=== PATIENT | male | born 1985 | race Caucasian/White ===

== ENCOUNTER 2019-03-30 15:13 | Emergency (ER) | payer OTHER, SELFPAY ==
[~2019-03-30] VITALS: Ht 165.1 cm; Wt 66.8 kg
[2019-03-30] MEDS ORDERED: ADACEL/BOOSTRIX VACCINE (DIPHTH/PERTUSS/ACELL/TETANUS)0.5ML SYR (90715) IM ONE (15:45)
[2019-03-30] MEDS ORDERED: NS 1,000 ML IV ONE (15:45)
[2019-03-30 16:04] LABS: BASO # 0.2 10^3/uL (0.0-0.2); BASO % 0.7 % (0.0-1.0); EOS # 0.2 10^3/uL (0.0-0.50); EOS % 0.7 % (0.0-3.0); HEMATOCRIT 46.2 % (42.0-52.0); HEMOGLOBIN 16.3 g/dl (13.5-17.5); LYMPH # 1.9 10^3/uL (1.5-4.5); LYMPH % 8.9 % (24.0-44.0); MEAN CORPUSCULAR HEMOGLOBIN 30.9 pg (27.0-33.0); MEAN CORPUSCULAR HGB CONC 35.3 g/dl (32.0-36.5); MEAN CORPUSCULAR VOLUME 87.7 fl (80.0-96.0); MONO # 1.5 10^3/uL (0.0-0.8); NEUTROPHILS % 81.9 % (36.0-66.0); PLATELET COUNT, AUTOMATED 176 10^3/uL (150-450); RED BLOOD COUNT 5.27 10^6/uL (4.30-6.10); WHITE BLOOD COUNT 20.8 10^3/uL (4.0-10.0)
[2019-03-30 16:15] LABS: INR 1.03; PROTHROMBIN TIME 13.2 SECONDS (11.8-14.0)
[2019-03-30 16:16] LABS: PARTIAL THROMBOPLASTIN TIME 24.4 SECONDS (25.0-38.4)
[2019-03-30 16:24] LABS: ALBUMIN 4.2 GM/DL (3.2-5.2); ALT/SGPT 33 U/L (12-78); BILIRUBIN,DIRECT 0.2 MG/DL (0.0-0.2); BILIRUBIN,TOTAL 0.6 MG/DL (0.2-1.0); BLOOD UREA NITROGEN 13 MG/DL (7-18); CALCIUM LEVEL 9.4 MG/DL (8.5-10.1); CARBON DIOXIDE LEVEL 26 MEQ/L (21-32); CHLORIDE LEVEL 110 MEQ/L (98-107); CREATININE FOR GFR 1.09 MG/DL (0.70-1.30); GLOMERULAR FILTRATION RATE > 60.0 (>60); GLUCOSE, FASTING 105 MG/DL (70-100); SODIUM LEVEL 141 MEQ/L (136-145); TOTAL PROTEIN 7.4 GM/DL (6.4-8.2)
[2019-03-30] MEDS ORDERED: ISOVUE-370 76% 100ML VIAL (Q9967) As Ordered ONE (16:25)
[2019-03-30 16:57] LABS: AMORPHOUS SEDIMENT SMALL (NEGATIVE); APPEARANCE, URINE CLOUDY (CLEAR); BACTERIA, URINE AUTO NEGATIVE (NEGATIVE); BILIRUBIN, URINE AUTO NEGATIVE (NEGATIVE); BLOOD, URINE BLOOD 3+ (NEGATIVE); COLOR, URINE AMBER (YELLOW); GLUCOSE, URINE (UA) AUTO NEGATIVE (NEGATIVE); KETONE, URINE AUTO NEGATIVE (NEGATIVE); LEUKOCYTE ESTERASE, URINE AUTO NEGATIVE (NEGATIVE); MUCUS, URINE SMALL (NEGATIVE); NITRITE, URINE AUTO NEGATIVE (NEGATIVE); PROTEIN, URINE AUTO 2+ mg/dL (NEGATIVE); RBC, URINE AUTO 174 /HPF (0-3); SPECIFIC GRAVITY URINE AUTO 1.017 (1.002-1.035); SQUAMOUS EPITHELIAL CELL UR AU 1 /HPF (0-6); UROBILINOGEN, URINE AUTO 0.2 mg/dL (0.0-2.0); WBC, URINE AUTO 8 /HPF (0-3)
[2019-03-30 17:44] VITALS: BP 134/67
--- NOTE | 2019-04-01 08:30 | REP ---
Maxillofacial CT without IV contrast: Axial images are acquired helical scanning and are reformatted in sagittal and coronal projections. There is no nasal bone fracture. There is no zygoma fracture. There is no orbit fracture. The ocular lenses and globes are unremarkable. The paranasal sinuses are clear. There is no mandibular fracture or dislocation. There is an 18 mm cyst in the maxilla on the right in the location of the first molar. The first molar is no longer present, however, there is a too through within the cyst, possibly from previous extraction. Impression: No facial bone fracture. Bilateral contra bullosa of the middle turbinates is incidentally identified. There is a maxillary arteries cyst on the right in the location of the first molar. There is a II through within this cyst. This may be from previous first molar extraction. Electronically Signed by Patric Odell MD 03/30/2019 04:56 P
--- NOTE | 2019-04-01 08:30 | REP ---
Left tibia-fibula four views : There is no fracture or dislocation. Mineralization and joint spaces are normal. There are no calcifications or foreign bodies. Impression: Negative Left tibia-fibula . Electronically Signed by Patric Odell MD 03/30/2019 04:35 P
--- NOTE | 2019-04-01 08:30 | REP ---
CT of the brain without IV contrast: There are no comparisons. There is no subdural or epidural hematoma. There is no intraparenchymal or subarachnoid hemorrhage. There is no edema, mass effect or midline shift. The cortical stripe is unremarkable. Ventricles are normal size and midline. The visualized paranasal sinuses and mastoid air cells are clear. Impression: Essentially negative CT study of the brain. Electronically Signed by Patric Odell MD 03/30/2019 04:40 P
--- NOTE | 2019-04-01 08:31 | REP ---
CT of the chest with IV contrast: There is no pneumothorax, hemothorax or pulmonary contusion. The thoracic aorta is unremarkable. There is no mediastinal hematoma. Cardiac size is normal. There is no clavicle, scapula, rib, vertebral or sternal fracture. Impression: Negative CT study of the chest. Electronically Signed by Patric Odell MD 03/30/2019 05:02 P
--- NOTE | 2019-04-01 10:53 | REP ---
Right femur four views : There is no fracture or dislocation. Mineralization and joint spaces are normal. There are no calcifications or foreign bodies. Impression: Negative right femur. Left femur four views : There is no fracture or dislocation. Mineralization and joint spaces are normal. There are no calcifications or foreign bodies. Impression: Negative left femur . Electronically Signed by Patric Odell MD 03/31/2019 06:57 A
--- NOTE | 2019-04-02 17:24 | REP ---
CT of the abdomen pelvis with IV contrast: The hepatic parenchyma is homogeneous. The gallbladder, pancreas and spleen are unremarkable. The adrenals and kidneys are unremarkable. The abdominal aorta is unremarkable. There is no hemoperitoneum. There is no pneumoperitoneum. There is no vertebral, sacral or pelvic fracture. Impression: Essentially negative CT study of the abdomen pelvis. Electronically Signed by Patric Odell MD 04/02/2019 05:16 P
== END 2019-03-30 17:47 | disposition home or self-care (01) ==
LOC: M ED 15:13
DX: Z04.1 Encounter for examination and observation following transport accident (principal); T14.8XXA Other injury of unspecified body region, initial encounter; V86.05XA Driver of 3- or 4- wheeled all-terrain vehicle (ATV) injured in traffic accident, initial encounter; Y92.89 Other specified places as the place of occurrence of the external cause; R31.9 Hematuria, unspecified; F17.210 Nicotine dependence, cigarettes, uncomplicated
CPT/HCPCS: 36415; 70450; 70486; 71260; 73552; 73590; 74177; 80048; 80076; 81001; 85025; 85610; 85730; 86850; 86900; 86901; 90471; 90715; 99284; Q9967

== ENCOUNTER 2020-10-03 14:11 | Emergency (ER) | payer SELFPAY ==
[~2020-10-03] VITALS: Ht 162.6 cm; Wt 70.6 kg
[2020-10-03] MEDS ORDERED: ONDANSETRON 4MG/2ML VIAL IV ONE (14:40)
[2020-10-03] MEDS ORDERED: MORPHINE 4 MG/ML 1ML VIAL/SYRINGE (J2270) IV ONE (14:40)
[2020-10-03] MEDS ORDERED: NS 1,000 ML IV ONE (14:40)
[2020-10-03] MEDS ORDERED: KETOROLAC 30 MG/ML 1ML VIAL IV ONE ×2 (14:50→16:30)
[2020-10-03] MEDS ORDERED: ISOVUE-370 76% 100ML VIAL As Ordered ONE (15:02)
[2020-10-03 15:09] LABS: BASO # 0.2 10^3/uL (0.0-0.2); BASO % 1.1 % (0.0-1.0); EOS # 0.2 10^3/uL (0.0-0.5); EOS % 1.2 % (0.0-3.0); HEMATOCRIT 48.8 % (42.0-52.0); HEMOGLOBIN 16.4 g/dl (13.5-17.5); LYMPH # 2.1 10^3/uL (1.5-5.0); LYMPH % 11.9 % (24.0-44.0); MEAN CORPUSCULAR HEMOGLOBIN 30.6 pg (27.0-33.0); MEAN CORPUSCULAR HGB CONC 33.6 g/dl (32.0-36.5); MONO % 5.6 % (2.0-8.0); NEUTROPHILS # 14.3 10^3/uL (1.5-8.5); NEUTROPHILS % 79.8 % (36.0-66.0); PLATELET COUNT, AUTOMATED 217 10^3/uL (150-450); RED BLOOD COUNT 5.36 10^6/uL (4.30-6.10)
[2020-10-03 15:19] LABS: PROTHROMBIN TIME 13.4 SECONDS (12.5-14.3)
[2020-10-03 15:20] LABS: PARTIAL THROMBOPLASTIN TIME 24.4 SECONDS (24.2-38.5)
[2020-10-03 15:36] LABS: ALBUMIN 4.1 GM/DL (3.2-5.2); ALT/SGPT 30 U/L (12-78); AMYLASE 54 U/L (25-115); BILIRUBIN,DIRECT 0.2 MG/DL (0.0-0.2); BILIRUBIN,TOTAL 0.5 MG/DL (0.2-1.0); CPK CREATINE PHOSPHOKINASE 171 U/L (39-308); LIPASE 97 U/L (73-393); MB/CK RELATIVE INDEX 0.58 (< OR =4); TOTAL PROTEIN 7.4 GM/DL (6.4-8.2); TROPONIN I < 0.02 NG/ML (< 0.10)
--- NOTE | 2020-10-03 15:42 | REP ---
INDICATION: pleuritic cp. COMPARISON: 03/30/2019. TECHNIQUE: CT angiogram chest performed following the intravenous administration of 100 cc of Isovue 370. Sagittal and coronal reconstruction images are performed. FINDINGS: Lungs: Clear, no infiltrate or nodule. Mediastinum: No adenopathy. Pulmonary arteries: No evidence of pulmonary embolism. Jennifer: No adenopathy. Axilla: No adenopathy. Pleura: No effusion. Heart: Not enlarged. Thoracic aorta: No aneurysm or dissection. Visualized osseous structures: Unremarkable. IMPRESSION: No CT evidence of pulmonary embolism. No infiltrate seen. <Electronically signed by Patric Prado > 10/03/20 [id number]
--- NOTE | 2020-10-03 15:52 | REP ---
INDICATION: R sided abd pain radiating to chest and lower abd COMPARISON: 05/30/2019. TECHNIQUE: CT Scan of the abdomen and pelvis was performed with intravenous administration of 100 cc of Isovue 370, without oral contrast. Sagittal and coronal reconstruction images are performed. FINDINGS: Lung bases: Unremarkable. Liver: Normal Gallbladder: Unremarkable. Spleen: Normal. Adrenals: Normal. Pancreas: Normal. Kidneys: There is mild right hydronephrosis. There is mild right hydroureter. There is a 3 mm calculus in the distal end of the right ureter. Small and large bowel: Unremarkable. Free fluid: None. Abdominal aorta: No aneurysm or dissection. Adenopathy: None. Appendix: Not inflamed. Osseous structures: Unremarkable. Pelvis: No mass. There is a very small left inguinal hernia containing noninflamed fat. IMPRESSION: There is a 3 mm calculus in the distal end of the right ureter causing mild right hydroureteronephrosis. <Electronically signed by Patric Prado > 10/03/20 [id number]
[2020-10-03] MEDS ORDERED: KETO10TAB PO (16:27)
[2020-10-03] MEDS ORDERED: FLOM0.4C39 PO (16:27)
[2020-10-03] MEDS ORDERED: TAMSULOSIN 0.4 MG CAP PO ONE (16:30)
[2020-10-03 17:31] LABS: CK-MB VALUE MASS 1.1 NG/ML (<3.6); CPK CREATINE PHOSPHOKINASE 142 U/L (39-308); MB/CK RELATIVE INDEX 0.77 (< OR =4); TROPONIN I < 0.02 NG/ML (< 0.10)
[2020-10-03 17:44] VITALS: BP 157/86
--- NOTE | 2020-10-03 20:30 | ECGEPIP ---
[facility] - ED Test Date: 2020-10-03 Pat Name: DRE BYERS Department: Room: - Gender: Male Therapeutic Strategy Lead: yudith : 1985 Requested By: LALI Manning PA-C Order Number: [id number] Reading MD: Elpidio García Measurements Intervals Clark Rate: 50 P: 13 WA: 150 QRS: 74 QRSD: 88 T: 47 QT: 416 QTc: 379 Interpretive Statements Sinus bradycardia INCOMPLETE RIGHT BUNDLE BRANCH BLOCK NO PRIORS FOR COMPARISON Electronically Signed on 10-03-2020 20:30:22 EST by Elpidio García
== END 2020-10-03 17:40 | disposition home or self-care (01) ==
LOC: M ED 14:11
DX: N20.1 Calculus of ureter (principal); F17.210 Nicotine dependence, cigarettes, uncomplicated
CPT/HCPCS: 71275; 74177; 80047; 80076; 81001; 82150; 82550; 82553; 83605; 83690; 84484; 85025; 85610; 85730; 87040; 93005; 93041; 96361; 96374; 96375; 96376; 99284; J1885; J2405; Q9967

== ENCOUNTER 2022-05-03 09:59 | Emergency (ER) | payer SELFPAY ==
[~2022-05-03] VITALS: Ht 162.6 cm; Wt 68.3 kg
[~2022-05-03 09:59] MED LIST: FLOM0.4C39 PO; KETO10TAB PO
[2022-05-03 10:01] VITALS: BP 123/70
[2022-05-03] MEDS ORDERED: KETOROLAC 60MG 2ML VIAL IM ONE (14:05)
[2022-05-03] MEDS ORDERED: methocarbamoL 750 MG TAB PO ONE (14:05)
[2022-05-03] MEDS ORDERED: METH-1165 PO (14:24)
== END 2022-05-03 14:39 | disposition home or self-care (01) ==
LOC: M ED 09:59
DX: R20.1 Hypoesthesia of skin (principal); I45.10 Unspecified right bundle-branch block; Z79.899 Other long term (current) drug therapy
CPT/HCPCS: 93005; 96372; 99284; J1885